=== PATIENT | male | born 1960 | race African-American/Black ===

== ENCOUNTER → 2016-10-11 | Outpatient (CLI) | payer BC ==
--- NOTE | 2016-10-11 17:26 | RADRPT ---
PROCEDURE: XR right femur. CLINICAL INDICATION: Pain TECHNIQUE: 2 views performed. COMPARISON: No prior studies are available for comparison. FINDINGS: There is normal mineralization. No fracture or osseous lesion is identified. ORIF of a old healed fr acture of the mid femur with a locking intramedullary jennifer. No acute fracture is identified. The sof t tissues are unremarkable. IMPRESSION: ORIF of old healed mid femoral fracture with a locking intramedullary jennifer. No acute osseous abnormalities identified RPTAT: [facility] .Juan Carlos Palm MD, Date Time Electronically viewed and signed by .Juan Carlos Palm MD, on 10/11/2016 17:25 .B/
--- NOTE | 2016-10-11 17:27 | RADRPT ---
PROCEDURE: XR pelvis/right hip. CLINICAL INDICATION: Hip pain TECHNIQUE: AP pelvis/AP and lateral right hip views performed COMPARISON: No prior studies are available for comparison. FINDINGS: ORIF of old healed mid femoral fracture with a locking intramedullary jennifer. There is moderate bilateral hip osteoarthrosis. This is associated with joint space narrowing, subch ondral sclerosis and osteophytosis. There is normal mineralization. No acute fractures or osseous lesions are identified. The soft tissues are unremarkable. IMPRESSION: ORIF of old healed mid femoral fracture with a locking intramedullary jennifer Moderate bilateral hip osteoarthrosis. RPTAT: [facility] .Juan Carlos Palm MD, MD Date Time Electronically viewed and signed by .Juan Carlos Palm MD, on 10/11/2016 17:27 .B/
== END | disposition home or self-care (01) ==
LOC: HKI 15:20
PROVIDERS: ATTEND Orthopaedic Surgery
DX: M70.61 Trochanteric bursitis, right hip (principal); M25.551 Pain in right hip; Y93.9 Activity, unspecified; S72.331 Displaced oblique fracture of shaft of right femur; V49.60XS Unspecified car occupant injured in collision with unspecified motor vehicles in traffic accident, sequela; F17.200 Nicotine dependence, unspecified, uncomplicated
CPT/HCPCS: 20610; 73502; 73552; G0463; J1030